=== PATIENT | male | born 1945 | race Caucasian/White ===

== ENCOUNTER 2017-05-19 11:29 | Emergency (ER) | payer OTHER, MEDICARE ==
--- NOTE | 2017-05-19 12:00 | ER Document Report ---
ED General - General Chief Complaint: Abdominal Pain Stated Complaint: ABDOMINAL PAIN Time Seen by Provider: 05/19/17 11:59 Mode of Arrival: Ambulatory Information source: Patient TRAVEL OUTSIDE OF THE [place] 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 No back pain, nausea, vomiting, diarrhea, fevers, or loss of appetite. No aggravating or alleviating factors. I have greeted and performed a rapid initial assessment of this patient. A comprehensive ED assessment and evaluation of the patient, analysis of test results and completion of the medical decision making process will be conducted by additional ED providers. PHYSICAL EXAMINATION: GENERAL: Well-appearing, well-nourished and in no acute distress. HEAD: Atraumatic, normocephalic. EYES: Pupils equal round extraocular movements intact, conjunctiva are normal. ENT: Nares patent NECK: Normal range of motion LUNGS: No respiratory distress ABD: Patient has mild tenderness with right upper quadrant palpation. No rebound rigidity or guarding. Positive bowel sounds. Musculoskeletal: Normal range of motion NEUROLOGICAL: Normal speech, normal gait. PSYCH: Normal mood, normal affect. SKIN: Warm, Dry, normal turgor, no rashes or lesions noted. - Related Data Allergies/Adverse Reactions: No Known Allergies Allergy (Verified 05/19/17 11:30) Past Medical History - Social History Smoking Status: Current Every Day Smoker Chew tobacco use (# tins/day): No Frequency of alcohol use: None Drug Abuse: None Family History: Reviewed & Not Pertinent Patient has suicidal ideation: No Patient has homicidal ideation: No - Past Medical History Cardiac Medical History: Reports: Hx Coronary Artery Disease, Hx Hypercholesterolemia, Hx Hypertension Denies: Hx Heart Attack Pulmonary Medical History: Reports: Hx COPD Denies: Hx Asthma Neurological Medical History: Denies: Hx Cerebrovascular Accident, Hx Seizures Endocrine Medical History: Reports: Hx Diabetes Mellitus Type 1, Hx Diabetes Mellitus Type 2 Renal/ Medical History: Denies: Hx Peritoneal Dialysis GI Medical History: Denies: Hx Hepatitis, Hx Hiatal Hernia, Hx Ulcer Musculoskeltal Medical History: Reports Hx Arthritis Psychiatric Medical History: Reports: Hx Depression Infectious Medical History: Denies: Hx Hepatitis Past Surgical History: Reports: Hx Cardiac Surgery - TRIPLE BYPASS, STENTS, Hx Nose Surgery, Hx Open Heart Surgery - bypass, Hx Orthopedic Surgery - bilat TKA , Hx Tonsillectomy. Denies: Hx Pacemaker - Immunizations Hx Diphtheria, Pertussis, Tetanus Vaccination: Yes Physical Exam - Vital signs Vitals: Temp Pulse Resp BP Pulse Ox 97.4 F 69 16 125/68 97 05/19/17 11:35 05/19/17 11:35 05/19/17 11:35 05/19/17 11:35 05/19/17 11:35 Course - Vital Signs Vital signs: Temp Pulse Resp BP Pulse Ox 97.4 F 69 16 125/68 97 05/19/17 11:35 05/19/17 11:35 05/19/17 11:35 05/19/17 11:35 05/19/17 11:35
--- NOTE | 2017-05-19 12:15 | ER Document Report ---
ED GI/ - General Chief Complaint: Abdominal Pain Stated Complaint: ABDOMINAL PAIN Time Seen by Provider: 05/19/17 11:59 Mode of Arrival: Ambulatory Information source: Patient Notes: 71-year-old male who presents today with 2 days of some right upper quadrant and right lower quadrant abdominal pain. He states it is intermittent. He denies any aggravating or relieving factors. He denies any association necessarily with food. He does state some radiation across the left upper abdomen. He denies any nausea, vomiting, fevers, chest pain, shortness of breath. Patient denies a history of pain to this location previously. Patient states he does not drink excessive alcohol and he does not have an appendix. TRAVEL OUTSIDE OF THE [place] IN LAST 30 DAYS: No - HPI Patient complains to provider of: Other - See above Onset: Other - See above Timing/Duration: Gradual Quality of pain: Achy, Other - See above Severity at maximum: Moderate Severity in ED: Mild Pain Level: 1 Location: Other - See above Sexual history: Inactive Associated symptoms: Other - See above Exacerbated by: Denies Relieved by: Denies Similar symptoms previously: No Recently seen / treated by doctor: No - Related Data Allergies/Adverse Reactions: No Known Allergies Allergy (Verified 05/19/17 11:30) Past Medical History - General Information source: Patient - Social History Smoking Status: Current Every Day Smoker Cigarette use (# per day): No Chew tobacco use (# tins/day): No Smoking Education Provided: No Frequency of alcohol use: None Drug Abuse: None Family History: Reviewed & Not Pertinent Patient has suicidal ideation: No Patient has homicidal ideation: No - Past Medical History Cardiac Medical History: Reports: Hx Coronary Artery Disease, Hx Hypercholesterolemia, Hx Hypertension Denies: Hx Heart Attack Pulmonary Medical History: Reports: Hx COPD Denies: Hx Asthma Neurological Medical History: Denies: Hx Cerebrovascular Accident, Hx Seizures Endocrine Medical History: Reports: Hx Diabetes Mellitus Type 1, Hx Diabetes Mellitus Type 2 Renal/ Medical History: Denies: Hx Peritoneal Dialysis GI Medical History: Denies: Hx Hepatitis, Hx Hiatal Hernia, Hx Ulcer Musculoskeltal Medical History: Reports Hx Arthritis Psychiatric Medical History: Reports: Hx Depression Infectious Medical History: Denies: Hx Hepatitis Past Surgical History: Reports: Hx Cardiac Surgery - TRIPLE BYPASS, STENTS, Hx Nose Surgery, Hx Open Heart Surgery - bypass, Hx Orthopedic Surgery - bilat TKA , Hx Tonsillectomy. Denies: Hx Pacemaker - Immunizations Hx Diphtheria, Pertussis, Tetanus Vaccination: Yes Review of Systems - Review of Systems Constitutional: denies: Fever EENT: denies: Eye discharge, Nose discharge Cardiovascular: denies: Chest pain, Palpitations Respiratory: denies: Short of breath Gastrointestinal: denies: Abdomen distended, Diarrhea, Nausea, Vomiting Genitourinary: denies: Dysuria Musculoskeletal: denies: Leg swelling Skin: Other - no hives. denies: Rash Neurological/Psychological: Other - no slurred speech -: Yes All other systems reviewed and negative Physical Exam - Vital signs Vitals: Temp Pulse Resp BP Pulse Ox 97.4 F 69 16 125/68 97 05/19/17 11:35 05/19/17 11:35 05/19/17 11:35 05/19/17 11:35 05/19/17 11:35 Notes: Reviewed vital signs and nursing note as charted by RN. CONSTITUTIONAL: Alert and oriented and responds appropriately to questions. Well -appearing; well-nourished HEAD: Normocephalic; atraumatic EYES: Sclerae non-icteric CARD: Regular rate and rhythm; no murmurs RESP: Normal chest excursion without splinting or tachypnea; breath sounds clear and equal bilaterally ABD/GI: Normal bowel sounds; non-distended; soft, mild tenderness to the right upper and right lower quadrants. Right lower quadrant greater than right upper quadrant. No rebound or guarding. No palpable masses or bruits upon auscultation BACK: The back appears normal and is non-tender to palpation, there is no CVA tenderness EXT: Normal ROM in all joints; non-tender to palpation; no edema SKIN: No acute lesions noted NEURO: Moves all extremities equally; Motor and sensory function intact PSYCH: The patient's mood and manner are appropriate. Grooming and personal hygiene are appropriate. Course - Re-evaluation Re-evalutation: 05/19/17 12:18 Given the history, physical, patient's age, cardiac history, we will obtain basic labs, abdominal labs, including an EKG and a lactic acid as well as a CT scan of the abdomen and pelvis. EKG shows a heart of 65, normal sinus rhythm, normal axis, no obvious ST elevation. Inverted T waves in leads II, 3, aVF, V4 through V6. Possibly minimal depression in leads V4 and V5. Previous EKG in July 2011 does show inverted T waves in leads V4 through V6 with some minimal depressions in leads V4 and V5. Patient denies any chest pain. I have added a troponin I. 05/19/17 14:22 Labs thus far as recorded. 05/19/17 15:10 Labs as recorded. Vital signs are stable. No change in exam. CT pending. 05/19/17 17:01 CT of the abdomen and pelvis as recorded. Lactic acid is recorded. No signs of cholecystitis. Normal white blood cell count. Repeat troponin as recorded. Patient still denies any chest pain. On repeat examination the patient has no tenderness currently to the right upper quadrant upon deep palpation. Patient does not have an appendix. Given the above history and physical examination, repeat troponin, CT scan of the abdomen and pelvis, urinalysis, patient will be discharged home with strict return precautions and follow-up with his primary care physician. I have instructed the patient to start taking Prilosec once a day and I have provided extremely strict return precautions. Patient understands these instructions. - Vital Signs Vital signs: Temp Pulse Resp BP Pulse Ox 97.4 F 69 16 125/68 97 05/19/17 11:35 05/19/17 11:35 05/19/17 11:35 05/19/17 11:35 05/19/17 11:35 - Laboratory Result Diagrams: 05/19/17 12:36 05/19/17 12:36 Laboratory results interpreted by me: 05/19/17 05/19/17 12:36 12:36 Potassium 5.1 H BUN 25 H Creatinine 2.00 H Est GFR ( Amer) 40 L Est GFR (Non-Af Amer) 33 L Glucose 190 H Urine Glucose (UA) 150 H Discharge - Discharge Clinical Impression: Abdominal discomfort Condition: Good Disposition: HOME, SELF-CARE Additional Instructions: Come back immediately for any increased pain, change in the quality or location of pain, fevers, vomiting, diarrhea, blood in the diarrhea, blood in the stool, or any other acute problems. Please start taking Prilosec [id number] antacid medications and please follow-up with your primary care physician as we have discussed. Referrals: FARAZ TIRADO MD [Primary Care Provider] - Follow up as needed
[2017-05-19 12:54] LABS: ABSOLUTE BASOPHILS # (AUTO) 0.1 10^3/uL (0.0-0.2); ABSOLUTE EOSINOPHILS # (AUTO) 0.3 10^3/uL (0.0-0.6); ABSOLUTE LYMPHOCYTES (AUTO) 3.1 10^3/uL (0.5-4.7); ABSOLUTE MONOCYTES (AUTO) 0.6 10^3/uL (0.1-1.4); ABSOLUTE NEUT (AUTO) 3.8 10^3/uL (1.7-8.2); BASOPHILS % (AUTO) 1.1 % (0-2); EOSINOPHILS % (AUTO) 3.8 % (0-6); HEMATOCRIT 46.6 % (37.9-51.0); HEMOGLOBIN 15.5 g/dL (13.5-17.0); LYMPHOCYTES % (AUTO) 39.3 % (13-45); MEAN CORPUSCULAR HEMOGLOBIN 32.5 pg (27.0-33.4); MEAN CORPUSCULAR HGB CONC 33.4 g/dL (32.0-36.0); MEAN CORPUSCULAR VOLUME 97 fl (80-97); MONOCYTES % (AUTO) 7.4 % (3-13); PLATELET COUNT 204 10^3/uL (150-450); RED BLOOD COUNT 4.78 10^6/uL (4.35-5.55); RED CELL DISTRIBUTION WIDTH 13.5 % (11.5-14.0); SEGMENTED NEUTROPHILS % (AUTO) 48.4 % (42-78); TOTAL CELLS COUNTED % (AUTO) 100 %; WHITE BLOOD COUNT 7.9 10^3/uL (4.0-10.5)
[2017-05-19 12:57] LABS: APPEARANCE,URINE CLEAR; BILIRUBIN,URINE NEGATIVE (NEGATIVE); COLOR,URINE YELLOW; GLUCOSE, URINE 150 mg/dL (NEGATIVE); KETONES,URINE NEGATIVE (NEGATIVE); LEUKOCYTE ESTERASE,URINE NEGATIVE (NEGATIVE); NITRITE,URINE NEGATIVE (NEGATIVE); PROTEIN,URINE NEGATIVE (NEGATIVE); URINE SPECIFIC GRAVITY 1.006; UROBILINOGEN,URINE NEGATIVE mg/dL (<2.0)
[2017-05-19 13:17] LABS: ALANINE AMINOTRANSFERASE 24 U/L (21-72); ALBUMIN 4.2 g/dL (3.5-5.0); ALKALINE PHOSPHATASE 44 U/L (38-126); ANION GAP 8 (5-19); ASPARTATE AMINO TRANSFERASE 28 U/L (17-59); BILIRUBIN,DIRECT 0.3 mg/dL (0.0-0.4); BILIRUBIN,TOTAL 0.9 mg/dL (0.2-1.3); BLOOD UREA NITROGEN 25 mg/dL (7-20); CALCIUM 9.9 mg/dL (8.4-10.2); CARBON DIOXIDE 29 mmol/L (22-30); CHLORIDE 104 mmol/L (98-107); GLUCOSE 190 mg/dL (75-110); LIPASE 93.9 U/L (23-300); POTASSIUM 5.1 mmol/L (3.6-5.0); SODIUM 141.1 mmol/L (137-145); TOTAL PROTEIN 6.7 g/dL (6.3-8.2)
--- NOTE | 2017-05-19 16:15 | RADIOLOGY REPORT (SQ) ---
EXAM DESCRIPTION: CT ABD/PELVIS ORAL ONLY COMPLETED DATE/TIME: 05/19/2017 3:53 pm REASON FOR STUDY: 13, RUQ and RLQ pain; no appendix COMPARISON: Renal ultrasound 04/26/2007, 12/29/2014 CT abdomen pelvis 04/14/2007 TECHNIQUE: CT scan of the abdomen and pelvis performed without intravenous contrast. Patient drank oral contrast. Images reviewed with lung, soft tissue, and bone windows. Reconstructed coronal and sagittal MPR imag es reviewed. All images stored on PACS. All CT scanners at this facility use dose modulation, iterative reconstruction, and/or weight based d osing when appropriate to reduce radiation dose to as low as reasonably achievable (ALARA). [facility]: Dose Right [facility]: CareDose [facility]: Dose Right [facility]: Teradose 4D [facility]: [employer] RADIATION DOSE: CT Rad equipment meets quality standard of care and radiation dose reduction techniq ues were employed. CTDIvol: 8.0 mGy. DLP: 453 mGy-cm.mGy. LIMITATIONS: None. FINDINGS: LOWER CHEST: Lung bases are clear. Tiny hiatal hernia. Coronary artery calcification. O ld surgical jose right lateral lung base. NON-CONTRASTED LIVER, SPLEEN, ADRENALS: Evaluation limited by lack of IV contrast. No identified sign ificant masses. PANCREAS: No masses. No peripancreatic inflammatory changes. GALLBLADDER: No identified stones by CT criteria. No inflammatory changes to suggest cholecystitis. RIGHT KIDNEY AND URETER: Right kidney 10.5 cm in length. No suspicious masses. Assessment limited b y lack of IV contrast. 1 cm cyst right lower pole kidney. No significant calcifications. No hydro nephrosis or hydroureter. LEFT KIDNEY AND URETER: Left kidney 7.5 cm in length. No suspicious masses. Assessment limited by l ack of IV contrast. 2 cm left upper pole cyst, 1.6 cm left midpole cyst, 1 cm left lower pole cyst. No significant calcifications. No hydronephrosis or hydroureter. AORTA AND RETROPERITONEUM: Abdominal aorta 3.2 cm in greatest AP diameter. Inferior vena cava unrema rkable. No retroperitoneal masses or adenopathy. BOWEL AND PERITONEAL CAVITY: No obvious masses or inflammatory changes. No free fluid. Patient drank oral contrast. No CT evidence of bowel obstruction. APPENDIX: Surgically absent. PELVIS, BLADDER, AND ABDOMINAL WALL:Tiny umbilical hernia containing nonobstructed small bowel bryant claudio image 51, axial image 53. No abnormal masses. No free fluid. Bladder normal. BONES: Degenerative disc changes lower lumbar spine OTHER: No other significant finding. IMPRESSION: NO SIGNIFICANT OR ACUTE PROCESS IN THE ABDOMEN OR PELVIS. COMMENT: Quality ID # [id number]: Final reports with documentation of one or more dose reduction techniques (e.g., Automated exposure control, adjustment of the mA and/or kV according to patient size, use of iterative reconstruction technique) TECHNICAL DOCUMENTATION: JOB ID: [id number] [employer]- All Rights Reserved
--- NOTE | 2017-05-19 17:34 | EKG REPORT ---
SEVERITY:- ABNORMAL ECG - SINUS RHYTHM REPOL ABNRM SUGGESTS ISCHEMIA, ANT-LAT LEADS : Confirmed by: Stan Torres MD 19-May-2017 17:33:28
[2017-05-19 17:36] VITALS: BP 124/68
== END 2017-05-19 17:41 | disposition home or self-care (01) ==
LOC: ER 11:29
DX: R10.11 Right upper quadrant pain (principal); R10.31 Right lower quadrant pain; F17.200 Nicotine dependence, unspecified, uncomplicated; I25.10 Atherosclerotic heart disease of native coronary artery without angina pectoris; E78.00 Pure hypercholesterolemia, unspecified; I10 Essential (primary) hypertension; J44.9 Chronic obstructive pulmonary disease, unspecified; E11.9 Type 2 diabetes mellitus without complications; Z95.1 Presence of aortocoronary bypass graft
CPT/HCPCS: 36415; 74176; 80053; 81001; 83605; 83690; 84484; 85025; 93005; 93010; 99284

== ENCOUNTER 2017-11-06 06:06 | Day surgery (SDC) | payer MEDICARE, OTHER ==
--- NOTE | 2017-10-30 13:29 | RADIOLOGY REPORT (SQ) ---
EXAM DESCRIPTION: CHEST 2 VIEWS COMPLETED DATE/TIME: 10/30/2017 1:17 pm REASON FOR STUDY: PRE OP; SOB COMPARISON: July 2015 EXAM PARAMETERS: NUMBER OF VIEWS: two views TECHNIQUE: Digital Frontal and Lateral radiographic views of the chest acquired. RADIATION DOSE: NA LIMITATIONS: none FINDINGS: LUNGS AND PLEURA: No opacities, masses or pneumothorax. No pleural effusion. MEDIASTINUM AND HILAR STRUCTURES: No masses or contour abnormalities. HEART AND VASCULAR STRUCTURES: Heart normal size. No evidence for failure. BONES: No acute findings. HARDWARE: Patient is status post median sternotomy OTHER: No other significant finding. IMPRESSION: NO ACUTE RADIOGRAPHIC FINDING IN THE CHEST. TECHNICAL DOCUMENTATION: JOB ID: [id number] [employer]- All Rights Reserved Reading location - IP/workstation name: [email or web address]
[2017-10-30 13:48] LABS: HEMATOCRIT 48.1 % (37.9-51.0); HEMOGLOBIN 16.6 g/dL (13.5-17.0); MEAN CORPUSCULAR HEMOGLOBIN 32.5 pg (27.0-33.4); MEAN CORPUSCULAR HGB CONC 34.5 g/dL (32.0-36.0); MEAN CORPUSCULAR VOLUME 94 fl (80-97); PLATELET COUNT 170 10^3/uL (150-450)
[2017-10-30 14:08] LABS: ANION GAP 14 (5-19); BLOOD UREA NITROGEN 33 mg/dL (7-20); CALCIUM 9.9 mg/dL (8.4-10.2); CARBON DIOXIDE 25 mmol/L (22-30); CHLORIDE 98 mmol/L (98-107); GLUCOSE 396 mg/dL (75-110); POTASSIUM 5.4 mmol/L (3.6-5.0); SODIUM 137.2 mmol/L (137-145)
--- NOTE | 2017-10-30 22:14 | EKG REPORT ---
SEVERITY:- ABNORMAL ECG - SINUS RHYTHM REPOL ABNRM, PROBABLE ISCHEMIA, ANT-LAT LEADS : Confirmed by: Becky Cabrera 30-Oct-2017 22:13:32
[~2017-11-06 06:06] MED LIST: ACETAMINOPHEN 325 MG TABLET PO PRN; LACTATED RINGERS 1000 ML IV PRN; LIDOCAINE 0.5% INJ-PF (5 MG/ML) 50 ML SDV SUBCUT PRN
[2017-11-06] MEDS ORDERED: ONDANSETRON HCL INJ/PF 4 MG/2 ML SDV ONE (06:35)
[2017-11-06] MEDS ORDERED: PROPOFOL INJ 200 MG/20 ML VIAL IV ONE (06:35)
[2017-11-06] MEDS ORDERED: MIDAZOLAM 2 MG/2 ML INJ ONE (06:35)
[2017-11-06] MEDS ORDERED: FENTANYL CITRATE INJ/PF 100 MCG/2 ML AMPUL ONE (06:35)
[2017-11-06] MEDS ORDERED: LIDOCAINE 2% INJ-PF (20 MG/ML) 10 ML AMPUL ONE (06:35)
[2017-11-06] MEDS ORDERED: ALBUTEROL SULFATE 0.083% NEB 2.5 MG/3 ML AMPUL NEB ONE ×2 (06:51→07:00)
[2017-11-06 07:36] LABS: INTERNATIONAL RATION (INR) 0.95; PARTIAL THROMBOPLASTIN TIME 26.4 SEC (23.5-35.8); PROTHROMBIN TIME 13.1 SEC (11.4-15.4)
[2017-11-06 07:42] LABS: POTASSIUM 4.5 mmol/L (3.6-5.0)
[2017-11-06] MEDS ORDERED: INSULIN REG, HUMAN 100 UNIT/ML 3 ML VIAL (PYX) ONE (08:13)
[2017-11-06 10:12] LABS: POTASSIUM 4.8 mmol/L (3.6-5.0)
[2017-11-06] MEDS ORDERED: ONDANSETRON HCL INJ/PF 4 MG/2 ML SDV IV PRN (10:21)
[2017-11-06] MEDS ORDERED: DIPHENHYDRAMINE HCL 50 MG/ML VIAL IV PRN (10:21)
[2017-11-06] MEDS ORDERED: PROMETHAZINE HCL INJ 25 MG/1 ML VIAL IV PRN ×2 (10:21)
[2017-11-06] MEDS ORDERED: MEPERIDINE HCL/PF INJ 25 MG/1 ML DISP.SYRIN IV PRN (10:21)
[2017-11-06] MEDS ORDERED: FENTANYL CITRATE INJ/PF 100 MCG/2 ML AMPUL IV PRN ×3 (10:21)
[2017-11-06] MEDS ORDERED: NALOXONE HCL INJ/PF 0.4 MG/1 ML SDV ONE (11:26)
--- NOTE | 2017-11-06 11:33 | Discharge Summary ---
Discharge Summary (SDC) - Discharge Final Diagnosis: Inadequate bowel prep. No evidence of large masses, strictures, or concentric tumors. Date of Surgery: 11/06/17 Discharge Date: 11/06/17 Condition: Stable Referrals: FARAZ TIRADO MD [Primary Care Provider] - Discharge Diet: As Tolerated Respiratory Treatments at Home: Deep Breathing/Coughing, Incentive Spirometer Discharge Activity: Activity As Tolerated Home Care Assistance: None Needed Report the Following to Your Physician Immediately: Shortness of Breath, Nausea , Vomiting, Increase in Pain, Fever over 101 Degrees, Unusual Bleeding
--- NOTE | 2017-11-06 11:52 | Operative Report ---
Nonrecallable Operative Report DATE OF SURGERY: 11/06/17 PREOPERATIVE DIAGNOSIS: Weight loss POSTOPERATIVE DIAGNOSIS: 1. Inadequate bowel prep. 2. No evidence of strictures, concentric lesions/cancers, large tumors OPERATION: Colonoscopy to the cecum SURGEON: JEREMIE HAYNES ANESTHESIA: LMAC TISSUE REMOVED OR ALTERED: None COMPLICATIONS: Adequate bowel prep ESTIMATED BLOOD LOSS: None PROCEDURE: Drains/implants: None. Procedure in detail: After informed consent was obtained, the patient was laid in the left lateral decubitus position in the operating room. The colonoscope was inserted into the rectum. It was then passed up the rectum, moist colon, and colon, across the transverse colon, down the ascending colon, and into the cecum. The prep was inadequate. There was retained solid and liquid stool throughout the colon. Multiple washings and suctionings were undertaken, however a large portion of the colonic mucosa was not adequately surveyed. Approximately 70% of the colonic mucosa was adequately evaluated on this study. The ileocecal valve and appendiceal orifice were identified in the cecum. The scope was then withdrawn circumferentially noting the mucosa. The scope was pulled past the ascending colon, transverse colon, descending colon, sigmoid colon, and into the rectum. No large masses, tumors, or strictures could be identified in the colon. There is the possibility that small polyps were missed due to the large amount of retained stool. In the rectum, a retroflexion maneuver was performed. No significant internal hemorrhoids were identified. The scope was straightened, air was suctioned from the rectum, the scope was removed, and the procedure was concluded. All sponge, instrument, and needle counts were correct 2. Condition: Stable. Recommendation: Repeat colonoscopy in one year to evaluate for small polyps.
[2017-11-06 12:59] VITALS: BP 112/77
[2017-11-06] MEDS ORDERED: RINGERS LACTATED IV ONE (13:00)
== END 2017-11-06 12:45 | disposition home or self-care (01) ==
LOC: OROUT 06:06
PROVIDERS: ATTEND Surgery
DX: Z86.010 Personal history of colon polyps (principal); R63.4 Abnormal weight loss; E11.9 Type 2 diabetes mellitus without complications; I25.10 Atherosclerotic heart disease of native coronary artery without angina pectoris; J44.9 Chronic obstructive pulmonary disease, unspecified; F17.210 Nicotine dependence, cigarettes, uncomplicated; G47.33 Obstructive sleep apnea (adult) (pediatric); I11.0 Hypertensive heart disease with heart failure; I50.9 Heart failure, unspecified; D64.9 Anemia, unspecified; Z79.4 Long term (current) use of insulin; Z79.82 Long term (current) use of aspirin; Z79.01 Long term (current) use of anticoagulants; Z79.899 Other long term (current) drug therapy
CPT/HCPCS: 93005; 36415 ×2; 82962; 82947; 84132; 85027; 85610; 85730; 80048; 71046; 93010; 94640; G0121; J2250; J3010; J2310; A9270 ×2; J2405; J2704; J3490; 812; J1815

== ENCOUNTER 2017-11-27 10:16 | Emergency (ER) | payer MEDICARE | END 2017-11-27 13:01 | disposition left against medical advice (07) | LOC: ER 10:16 | DX: Z53.21 Procedure and treatment not carried out due to patient leaving prior to being seen by health care provider (principal) ==

== ENCOUNTER 2017-12-20 12:52 | Emergency (ER) | payer MEDICARE, OTHER ==
[2017-12-20] MEDS ORDERED: NORMAL SALINE 1000 ML 1,000 ML IV ONE (14:31)
--- NOTE | 2017-12-20 14:32 | ER Document Report ---
ED Medical Screen (RME) - General Chief Complaint: High Blood Sugar Stated Complaint: ELEVATED BLOOD SUGAR Time Seen by Provider: 12/20/17 14:30 Notes: Patient sent by his primary care provider because his blood sugar is very high. He is an insulin-dependent diabetic. Has been running uncontrollably high blood sugars over the past week or more. Patient says he is feeling tired and may be weak, but denies any other symptoms. TRAVEL OUTSIDE OF THE [place] IN LAST 30 DAYS: No - Related Data Allergies/Adverse Reactions: No Known Allergies Allergy (Verified 10/30/17 11:32) Past Medical History - Past Medical History Cardiac Medical History: Reports: Hx Coronary Artery Disease, Hx Hypercholesterolemia, Hx Hypertension Denies: Hx Heart Attack Pulmonary Medical History: Reports: Hx COPD Denies: Hx Asthma, Hx Bronchitis, Hx Pneumonia Neurological Medical History: Denies: Hx Cerebrovascular Accident, Hx Seizures Endocrine Medical History: Reports: Hx Diabetes Mellitus Type 1, Hx Diabetes Mellitus Type 2 Renal/ Medical History: Denies: Hx Peritoneal Dialysis GI Medical History: Denies: Hx Hepatitis, Hx Hiatal Hernia, Hx Ulcer Musculoskeltal Medical History: Reports Hx Arthritis - knees Psychiatric Medical History: Reports: Hx Depression Infectious Medical History: Denies: Hx Hepatitis Past Surgical History: Reports: Hx Cardiac Surgery - TRIPLE BYPASS, STENTS, Hx Nose Surgery, Hx Open Heart Surgery - bypass, Hx Orthopedic Surgery - bilat TKA , Hx Tonsillectomy. Denies: Hx Pacemaker - Immunizations Hx Diphtheria, Pertussis, Tetanus Vaccination: Yes History of Influenza Vaccine for 01/2017 - 06/2017 Season: No Physical Exam - Vital signs Vitals: Temp Pulse Resp BP Pulse Ox 97.3 F 60 16 121/60 95 12/20/17 13:30 12/20/17 13:30 12/20/17 13:30 12/20/17 13:30 12/20/17 13:30 Course - Vital Signs Vital signs: Temp Pulse Resp BP Pulse Ox 97.3 F 60 16 121/60 95 12/20/17 13:30 12/20/17 13:30 12/20/17 13:30 12/20/17 13:30 12/20/17 13:30 Doctor's Discharge - Discharge Referrals: FARAZ TIRADO MD [Primary Care Provider] - Follow up as needed
[2017-12-20 15:27] LABS: APPEARANCE,URINE CLEAR; BILIRUBIN,URINE NEGATIVE (NEGATIVE); COLOR,URINE YELLOW; GLUCOSE, URINE >=500 mg/dL (NEGATIVE); KETONES,URINE NEGATIVE (NEGATIVE); LEUKOCYTE ESTERASE,URINE NEGATIVE (NEGATIVE); NITRITE,URINE NEGATIVE (NEGATIVE); PROTEIN,URINE NEGATIVE (NEGATIVE); URINE SPECIFIC GRAVITY 1.023; UROBILINOGEN,URINE NEGATIVE mg/dL (<2.0)
[2017-12-20 15:30] LABS: ABSOLUTE BASOPHILS # (AUTO) 0.1 10^3/uL (0.0-0.2); ABSOLUTE EOSINOPHILS # (AUTO) 0.2 10^3/uL (0.0-0.6); ABSOLUTE MONOCYTES (AUTO) 0.5 10^3/uL (0.1-1.4); ABSOLUTE NEUT (AUTO) 5.6 10^3/uL (1.7-8.2); BASOPHILS % (AUTO) 1.3 % (0-2); EOSINOPHILS % (AUTO) 2.2 % (0-6); HEMATOCRIT 48.1 % (37.9-51.0); HEMOGLOBIN 16.3 g/dL (13.5-17.0); MEAN CORPUSCULAR HEMOGLOBIN 32.4 pg (27.0-33.4); MEAN CORPUSCULAR HGB CONC 33.8 g/dL (32.0-36.0); MEAN CORPUSCULAR VOLUME 96 fl (80-97); MONOCYTES % (AUTO) 5.5 % (3-13); PLATELET COUNT 213 10^3/uL (150-450); RED BLOOD COUNT 5.02 10^6/uL (4.35-5.55); RED CELL DISTRIBUTION WIDTH 13.2 % (11.5-14.0); TOTAL CELLS COUNTED % (AUTO) 100 %; WHITE BLOOD COUNT 9.4 10^3/uL (4.0-10.5)
[2017-12-20 15:40] LABS: ALANINE AMINOTRANSFERASE 24 U/L (21-72); ALBUMIN 4.5 g/dL (3.5-5.0); ALKALINE PHOSPHATASE 71 U/L (38-126); ANION GAP 16 (5-19); ASPARTATE AMINO TRANSFERASE 21 U/L (17-59); BILIRUBIN,DIRECT 0.4 mg/dL (0.0-0.4); BILIRUBIN,TOTAL 1.2 mg/dL (0.2-1.3); BLOOD UREA NITROGEN 29 mg/dL (7-20); CALCIUM 9.9 mg/dL (8.4-10.2); CARBON DIOXIDE 27 mmol/L (22-30); CHLORIDE 90 mmol/L (98-107); LIPASE 961.1 U/L (23-300); POTASSIUM 4.7 mmol/L (3.6-5.0); TOTAL PROTEIN 7.5 g/dL (6.3-8.2)
[2017-12-20 15:53] LABS: GLUCOSE 609 mg/dL (75-110)
[2017-12-20] MEDS ORDERED: INSULIN REG, HUMAN 100 UNIT/ML 3 ML VIAL (PYX) IV ONE (16:56)
--- NOTE | 2017-12-20 16:59 | ER Document Report ---
ED Blood Sugar Problem <JOSUE SOLORIO - Last Filed: 12/20/17 21:02> - General Mode of Arrival: Ambulatory Information source: Patient TRAVEL OUTSIDE OF THE [place] IN LAST 30 DAYS: No - HPI Onset: This morning Onset/Duration: Gradual Quality of pain: No pain Pain Level: Denies Associated symptoms: Increased thirst. denies: Vomiting Similar symptoms previously: No Recently seen / treated by doctor: Yes <YAZ JERONIMO - Last Filed: 12/21/17 11:03> - General Chief Complaint: High Blood Sugar Stated Complaint: ELEVATED BLOOD SUGAR Time Seen by Provider: 12/20/17 14:30 Notes: Patient presents complaining of elevated blood sugar. Patient saw his primary doctor today for a routine follow-up and was told his blood sugar was elevated. Patient states that he has had increased thirst. Patient states he has an occasional cough but attributes this to smoking. Patient denies any fever or recent illness. Patient denies any nausea vomiting or urinary symptoms. Patient states that today his primary doctor increased his Lantus from 50 units to 65 units in the evening and adjust the NovoLog to 12 units at noon and 8 units in the evening. (YAZ JERONIMO) - Related Data Allergies/Adverse Reactions: No Known Allergies Allergy (Verified 12/20/17 20:42) Past Medical History - General Information source: Patient - Social History Smoking Status: Current Every Day Smoker Chew tobacco use (# tins/day): No Frequency of alcohol use: None Drug Abuse: None Lives with: Spouse/Significant other Family History: Reviewed & Not Pertinent Patient has suicidal ideation: No Patient has homicidal ideation: No - Past Medical History Cardiac Medical History: Reports: Hx Coronary Artery Disease, Hx Hypercholesterolemia, Hx Hypertension Denies: Hx Heart Attack Pulmonary Medical History: Reports: Hx COPD Denies: Hx Asthma, Hx Bronchitis, Hx Pneumonia Neurological Medical History: Denies: Hx Cerebrovascular Accident, Hx Seizures Endocrine Medical History: Reports: Hx Diabetes Mellitus Type 1, Hx Diabetes Mellitus Type 2 Renal/ Medical History: Denies: Hx Peritoneal Dialysis GI Medical History: Denies: Hx Hepatitis, Hx Hiatal Hernia, Hx Ulcer Musculoskeletal Medical History: Reports Hx Arthritis - knees Psychiatric Medical History: Reports: Hx Depression Infectious Medical History: Denies: Hx Hepatitis Past Surgical History: Reports: Hx Cardiac Surgery - TRIPLE BYPASS, STENTS, Hx Nose Surgery, Hx Open Heart Surgery - bypass, Hx Orthopedic Surgery - bilat TKA , Hx Tonsillectomy. Denies: Hx Pacemaker - Immunizations Hx Diphtheria, Pertussis, Tetanus Vaccination: Yes <YAZ JERONIMO - Last Filed: 12/21/17 11:03> Review of Systems - Review of Systems Constitutional: No symptoms reported. denies: Chills, Fever, Recent illness EENT: No symptoms reported Cardiovascular: No symptoms reported. denies: Chest pain Respiratory: Cough. denies: Short of breath Gastrointestinal: No symptoms reported. denies: Abdominal pain, Diarrhea, Nausea, Vomiting Genitourinary: No symptoms reported. denies: Dysuria Male Genitourinary: No symptoms reported Musculoskeletal: No symptoms reported. denies: Back pain Skin: No symptoms reported Hematologic/Lymphatic: No symptoms reported Neurological/Psychological: No symptoms reported <YAZ JERONIMO - Last Filed: 12/21/17 11:03> Physical Exam - General General appearance: Appears well, Alert In distress: None - HEENT Head: Normocephalic, Atraumatic Eyes: Normal Conjunctiva: Normal Nasal: Normal Mouth/Lips: Normal Mucous membranes: Normal Neck: Normal, Supple. No: Lymphadenopathy - Respiratory Respiratory status: No respiratory distress Chest status: Nontender Breath sounds: Normal. No: Rales, Rhonchi, Stridor, Wheezing Chest palpation: Normal - Cardiovascular Rhythm: Regular Heart sounds: S1 appreciated, S2 appreciated Murmur: No - Abdominal Inspection: Normal Distension: No distension Bowel sounds: Normal Tenderness: Nontender Organomegaly: No organomegaly - Back Back: Normal, Nontender. No: CVA tenderness - Extremities General upper extremity: Normal inspection, Normal ROM General lower extremity: Normal inspection, Normal ROM - Neurological Neuro grossly intact: Yes Cognition: Normal Ace Coma Scale Eye Opening: Spontaneous Ace Coma Scale Verbal: Oriented [place] Coma Scale Motor: Obeys Commands [place] Coma Scale Total: 15 - Psychological Associated symptoms: Normal affect, Normal mood - Skin Skin Temperature: Warm Skin Moisture: Dry Skin Color: Normal <YAZ JERONIMO - Last Filed: 12/21/17 11:03> - Vital signs Vitals: Temp Pulse Resp BP Pulse Ox 97.3 F 60 16 121/60 95 12/20/17 13:30 12/20/17 13:30 12/20/17 13:30 12/20/17 13:30 12/20/17 13:30 Course - Laboratory Result Diagrams: 12/20/17 15:07 12/20/17 15:07 <JOSUE SOLORIO - Last Filed: 12/20/17 21:02> - Laboratory Result Diagrams: 12/20/17 15:07 12/20/17 15:07 <YAZ JERONIMO - Last Filed: 12/21/17 11:03> - Re-evaluation Re-evalutation: 12/20/17 21:02 I discussed patient's CAT scan with him, he reports he is already aware of his left kidney being smaller, the small abdominal aortic aneurysm, and arthritis in his back. No pancreatitis noted on CAT scan evaluation. Patient denies any abdominal pain, nausea, vomiting. Blood glucose downtrending. Patient was given p.o. fluids and crackers which he tolerated without any difficulty. Patient has newly organized insulin regimen by his primary care provider. Patient declining any additional evaluation or workup, declining admission to the hospital, states that he is ready to go home and he will come back if he worsens. He does agree to be seen by his provider in the next 1-2 days. He states he will return if he vomits, develops abdominal pain, fever, chest pain, dizziness, or any other concerning symptoms. He is quite well-appearing on evaluation, unremarkable vital signs, he tolerated p.o. without any difficulty. (JOSUE SOLORIO) 12/20/17 16:[address] Valdes regarding patient presentation and diagnostic evaluation discussed patient's elevated lipase test in the absence of any abdominal pain symptoms. Patient denies any alcohol use. Dr.'s Valdes recommends noncontrasted CT scan of the abdomen pelvis 12/20/17 17:[address], resting comfortably. RN states that there is no LR in the department, IV fluids changed to normal saline. 12/20/17 18:46 RN states that patient's recent Accu-Chek is 354. 12/20/17 19:19 Bedside report and handoff given to Josue BROWN (YAZ JERONIMO) - Vital Signs Vital signs: Temp Pulse Resp BP Pulse Ox 98.1 F 74 16 120/64 95 12/20/17 21:05 12/20/17 21:05 12/20/17 21:05 12/20/17 21:05 12/20/17 21:05 - Laboratory Laboratory results interpreted by me: 12/20/17 12/20/17 12/20/17 14:34 15:07 15:07 Sodium 133.0 L Chloride 90 L BUN 29 H Creatinine 1.74 H Est GFR ( Amer) 47 L Est GFR (Non-Af Amer) 39 L Glucose 609 H* POC Glucose 542 H* Lipase 961.1 H Urine Glucose (UA) >=500 H 12/20/17 18:40 Sodium Chloride BUN Creatinine Est GFR ( Amer) Est GFR (Non-Af Amer) Glucose POC Glucose 354 H Lipase Urine Glucose (UA) Discharge <JOSUE SOLOIRO - Last Filed: 12/20/17 21:02> <YAZ JERONIMO - Last Filed: 12/21/17 11:03> - Discharge Clinical Impression: Hyperglycemia Pancreatitis Qualifiers: Chronicity: acute Pancreatitis type: unspecified pancreatitis type Acute pancreatitis complication: unspecified Qualified Code(s): K85.90 - Acute pancreatitis without necrosis or infection, unspecified Condition: Stable Disposition: HOME, SELF-CARE Additional Instructions: Your blood sugar has been addressed, please follow your providers new recommended doses for insulin, please follow-up with them very closely in the office for recheck. Avoid sugary foods. Your pancreas is normal on imaging, lipase is 900, this will need to be trended. Start with clear fluid diet, progress to bland fluid, avoid fatty foods, take nausea medicine if needed, take Tylenol if needed for pain. Your CAT scan shows no new findings of left-sided kidney being small, degenerative disc disease, and small aortic aneurysm as we discussed. Please provide your primary care with the report as discussed. Return if you worsen including dizziness, vomiting, fever, abdominal pain, or any other concerning or worsening symptoms. Prescriptions: Ondansetron [Zofran Odt 4 mg Tablet] 1 - 2 tab PO Q4H PRN #15 tab.rapdis PRN Reason: For Nausea/Vomiting Referrals: FARAZ TIARDO MD [Primary Care Provider] - Follow up as needed
[2017-12-20] MEDS ORDERED: RINGERS SOLUTION,LACTATED 1,000 ML IV ONE (17:43)
[2017-12-20] MEDS ORDERED: NORMAL SALINE 1000 ML 1,000 ML IV PRN (17:49)
--- NOTE | 2017-12-20 17:56 | RADIOLOGY REPORT (SQ) ---
EXAM DESCRIPTION: CHEST 2 VIEWS COMPLETED DATE/TIME: 12/20/2017 5:40 pm REASON FOR STUDY: cough COMPARISON: 10/30/2017 EXAM PARAMETERS: NUMBER OF VIEWS: two views TECHNIQUE: Digital Frontal and Lateral radiographic views of the chest acquired. RADIATION DOSE: NA LIMITATIONS: none FINDINGS: LUNGS AND PLEURA: Postsurgical changes right lower lobe. No evidence of pulmonary edema o r pneumonia. MEDIASTINUM AND HILAR STRUCTURES: No masses or contour abnormalities. HEART AND VASCULAR STRUCTURES: Heart normal size. No evidence for failure. BONES: No acute findings. HARDWARE: CABG. OTHER: No other significant finding. IMPRESSION: NO ACUTE RADIOGRAPHIC FINDING IN THE CHEST. TECHNICAL DOCUMENTATION: JOB ID: [id number] [employer]- All Rights Reserved Reading location - IP/workstation name: [email or web address]
--- NOTE | 2017-12-20 20:19 | RADIOLOGY REPORT (SQ) ---
EXAM DESCRIPTION: CT ABD/PELVIS NO ORAL OR IV COMPLETED DATE/TIME: 12/20/2017 8:06 pm REASON FOR STUDY: elevated lipase, hyperglycemia COMPARISON: None. TECHNIQUE: CT scan of the abdomen and pelvis performed without intravenous or oral contrast. Images reviewed with lung, soft tissue, and bone windows. Reconstructed coronal and sagittal MPR images revi ewed. All images stored on PACS. All CT scanners at this facility use dose modulation, iterative reconstruction, and/or weight based d osing when appropriate to reduce radiation dose to as low as reasonably achievable (ALARA). [facility]: Dose Right [facility]: CareDose [facility]: Dose Right [facility]: Teradose 4D [facility]: Kadoink RADIATION DOSE: mGy. LIMITATIONS: None. FINDINGS: LOWER CHEST: No significant findings. No nodules or infiltrates. NON-CONTRASTED LIVER, SPLEEN, ADRENALS: Evaluation limited by lack of IV contrast. No identified sign ificant masses. PANCREAS: No masses. No peripancreatic inflammatory changes. GALLBLADDER: No identified stones by CT criteria. No inflammatory changes to suggest cholecystitis. RIGHT KIDNEY AND URETER: No suspicious masses. Assessment limited by lack of IV contrast. No signif icant calcifications. No hydronephrosis or hydroureter. LEFT KIDNEY AND URETER: Relatively atrophic/ hypoplastic compared to the right. Renal cortical cysts . No significant calcifications. No hydronephrosis. AORTA AND RETROPERITONEUM: 33 mm infrarenal abdominal aortic aneurysm. BOWEL AND PERITONEAL CAVITY: No obvious masses or inflammatory changes. No free fluid. APPENDIX: Not identified. PELVIS, BLADDER, AND ABDOMINAL WALL:No abnormal masses. No free fluid. Bladder normal. BONES: L3-4 degenerative disc changes and spondylosis. OTHER: No other significant finding. IMPRESSION: 1. The left kidney is relatively atrophic or hypoplastic compared to the right. 2. Small infrarenal abdominal aortic aneurysm. 3. Degenerative disc disease. 4. No acute findings in the abdomen or pelvis. COMMENT: Quality ID # [id number]: Final reports with documentation of one or more dose reduction techniques (e.g., Automated exposure control, adjustment of the mA and/or kV according to patient size, use of iterative reconstruction technique) TECHNICAL DOCUMENTATION: JOB ID: [id number] [employer]- All Rights Reserved Reading location - IP/workstation name: [email or web address]
[2017-12-20 21:10] VITALS: BP 120/64
== END 2017-12-20 21:10 | disposition home or self-care (01) ==
LOC: ER 12:52
DX: E11.65 Type 2 diabetes mellitus with hyperglycemia (principal); Z79.4 Long term (current) use of insulin; K85.90 Acute pancreatitis without necrosis or infection, unspecified; I71.4 Abdominal aortic aneurysm, without rupture; M47.9 Spondylosis, unspecified; R05 Cough; F17.200 Nicotine dependence, unspecified, uncomplicated; I25.10 Atherosclerotic heart disease of native coronary artery without angina pectoris; I10 Essential (primary) hypertension; J44.9 Chronic obstructive pulmonary disease, unspecified; Z95.1 Presence of aortocoronary bypass graft
CPT/HCPCS: 99285; 96360; 96361; 36415; 82962; 83690; 85025; 80053; 81001; 71046; 74176; A9270; J7030; J1815

== ENCOUNTER → 2018-01-18 | Outpatient (CLI) | payer MEDICARE, OTHER ==
[2018-01-18 09:16] LABS: APPEARANCE,URINE CLEAR; BILIRUBIN,URINE NEGATIVE (NEGATIVE); COLOR,URINE YELLOW; GLUCOSE, URINE >=500 mg/dL (NEGATIVE); KETONES,URINE NEGATIVE (NEGATIVE); LEUKOCYTE ESTERASE,URINE NEGATIVE (NEGATIVE); NITRITE,URINE NEGATIVE (NEGATIVE); PROTEIN,URINE NEGATIVE (NEGATIVE); UROBILINOGEN,URINE NEGATIVE mg/dL (<2.0)
[2018-01-18 09:17] LABS: ABSOLUTE BASOPHILS # (AUTO) 0.2 10^3/uL (0.0-0.2); ABSOLUTE EOSINOPHILS # (AUTO) 0.7 10^3/uL (0.0-0.6); ABSOLUTE LYMPHOCYTES (AUTO) 3.1 10^3/uL (0.5-4.7); ABSOLUTE MONOCYTES (AUTO) 0.7 10^3/uL (0.1-1.4); ABSOLUTE NEUT (AUTO) 3.1 10^3/uL (1.7-8.2); BASOPHILS % (AUTO) 2.2 % (0-2); EOSINOPHILS % (AUTO) 8.6 % (0-6); HEMATOCRIT 42.5 % (37.9-51.0); HEMOGLOBIN 14.3 g/dL (13.5-17.0); LYMPHOCYTES % (AUTO) 39.6 % (13-45); MEAN CORPUSCULAR HEMOGLOBIN 32.5 pg (27.0-33.4); MEAN CORPUSCULAR HGB CONC 33.7 g/dL (32.0-36.0); MEAN CORPUSCULAR VOLUME 96 fl (80-97); MONOCYTES % (AUTO) 9.1 % (3-13); PLATELET COUNT 194 10^3/uL (150-450); RED BLOOD COUNT 4.41 10^6/uL (4.35-5.55); RED CELL DISTRIBUTION WIDTH 14.3 % (11.5-14.0); SEGMENTED NEUTROPHILS % (AUTO) 40.5 % (42-78); TOTAL CELLS COUNTED % (AUTO) 100 %; WHITE BLOOD COUNT 7.8 10^3/uL (4.0-10.5)
[2018-01-18 09:36] LABS: POTASSIUM 4.9 mmol/L (3.6-5.0)
--- NOTE | 2018-01-18 09:44 | RADIOLOGY REPORT (SQ) ---
EXAM DESCRIPTION: CHEST PA/LATERAL COMPLETED DATE/TIME: 01/18/2018 9:00 am REASON FOR STUDY: PRE-OP COMPARISON: 12/22/2017. EXAM PARAMETERS: NUMBER OF VIEWS: two views TECHNIQUE: Digital Frontal and Lateral radiographic views of the chest acquired. RADIATION DOSE: NA LIMITATIONS: none FINDINGS: LUNGS AND PLEURA: Postsurgical changes right lung base with chronic scarring. No acute in filtrates or effusions. MEDIASTINUM AND HILAR STRUCTURES: No masses or contour abnormalities. HEART AND VASCULAR STRUCTURES: Heart normal size. No evidence for failure. BONES: Old healed right posterior 6th rib fracture. HARDWARE: Median sternotomy wires and marker clips compatible with post CABG change. IMPRESSION: Status post CABG. Postsurgical changes right lung base. Otherwise, no acute disease. TECHNICAL DOCUMENTATION: JOB ID: [id number] [employer]- All Rights Reserved Reading location - IP/workstation name: [email or web address]
[2018-01-18 10:03] LABS: ANION GAP 6 (5-19); BLOOD UREA NITROGEN 24 mg/dL (7-20); CALCIUM 9.1 mg/dL (8.4-10.2); CARBON DIOXIDE 26 mmol/L (22-30); CHLORIDE 110 mmol/L (98-107); SODIUM 141.6 mmol/L (137-145)
--- NOTE | 2018-01-18 10:12 | EKG REPORT ---
SEVERITY:- ABNORMAL ECG - SINUS RHYTHM BORDERLINE RIGHT AXIS DEVIATION NONSPECIFIC REPOL ABNORMALITY, DIFFUSE LEADS : Confirmed by: Becky Cabrera 18-Jan-2018 10:11:55
[2018-01-18 10:31] LABS: GLUCOSE 40 mg/dL (75-110)
== END ==
LOC: OD 08:21
PROVIDERS: ATTEND Orthopaedic Surgery
DX: Z01.818 Encounter for other preprocedural examination (principal); E11.9 Type 2 diabetes mellitus without complications
CPT/HCPCS: 36415; 71046; 80048; 81001; 83036; 85025; 93005; 93010

== ENCOUNTER 2018-03-10 11:09 | Emergency (ER) | payer MEDICARE, OTHER ==
--- NOTE | 2018-03-10 11:28 | ER Document Report ---
ED General - General Stated Complaint: BLOOD SUGAR ISSUE Time Seen by Provider: 03/10/18 11:23 Information source: Patient Notes: 72-year-old male brought by EMS secondary to some confusion with low blood sugars. Patient takes 45-50 units of insulin/Lantus at night. He otherwise takes only glucose controlling tablets. Patient states he felt a little "goofy " and EMS states his blood sugar upon arrival was 42. They provided 30 g of by mouth glucose as well as 50 mL of a D10 infusion. Patient has a history of insulin-dependent diabetes as well as chronic kidney disease, CABG in 1998, high blood pressure, and a AAA. Patient last had his AAA evaluated 1 week ago. Patient denies any and all other symptomatology such as headache, blurry vision, nausea, vomiting, chest pain, abdominal pain, weakness or numbness. He states he feels back to baseline. He states this episode is very similar to the previous 2 episodes he has had when his blood sugar was low. Patient does have a glucometer at home but states he ran out of test strips. Patient denies any recent changes to his insulin or pill medications. Patient denies any recent illnesses, eating breakfast at a later time, or missing any meals or snacks. TRAVEL OUTSIDE OF THE [place] IN LAST 30 DAYS: No - HPI Onset: Other - See above Onset/Duration: Gradual Quality of pain: No pain Severity: Mild Pain Level: Denies Associated symptoms: Other Exacerbated by: Denies Relieved by: Denies Similar symptoms previously: No Recently seen / treated by doctor: No - Related Data Allergies/Adverse Reactions: No Known Allergies Allergy (Verified 12/20/17 20:42) Past Medical History - Social History Smoking Status: Unknown if Ever Smoked Family History: Reviewed & Not Pertinent - Past Medical History Cardiac Medical History: Reports: Hx Coronary Artery Disease, Hx Hypercholesterolemia, Hx Hypertension Denies: Hx Heart Attack Pulmonary Medical History: Reports: Hx COPD Denies: Hx Asthma, Hx Bronchitis, Hx Pneumonia Neurological Medical History: Denies: Hx Cerebrovascular Accident, Hx Seizures Endocrine Medical History: Reports: Hx Diabetes Mellitus Type 1, Hx Diabetes Mellitus Type 2 Renal/ Medical History: Denies: Hx Peritoneal Dialysis GI Medical History: Denies: Hx Hepatitis, Hx Hiatal Hernia, Hx Ulcer Musculoskeletal Medical History: Reports Hx Arthritis - knees Psychiatric Medical History: Reports: Hx Depression Infectious Medical History: Denies: Hx Hepatitis Past Surgical History: Reports: Hx Cardiac Surgery - TRIPLE BYPASS, STENTS, Hx Nose Surgery, Hx Open Heart Surgery - bypass, Hx Orthopedic Surgery - bilat TKA , Hx Tonsillectomy. Denies: Hx Pacemaker - Immunizations Hx Diphtheria, Pertussis, Tetanus Vaccination: Yes Review of Systems - Review of Systems Constitutional: denies: Fever EENT: denies: Eye discharge, Nose discharge Cardiovascular: denies: Chest pain, Palpitations, Dizziness, Lightheaded Respiratory: denies: Cough, Short of breath Gastrointestinal: denies: Vomiting Genitourinary: denies: Dysuria Musculoskeletal: denies: Leg swelling Skin: Other - no hives. denies: Rash Neurological/Psychological: Other - no slurred speech -: Yes All other systems reviewed and negative Physical Exam - Vital signs Vitals: Resp BP Pulse Ox 16 104/74 100 03/10/18 11:17 03/10/18 11:17 03/10/18 11:17 Notes: Reviewed vital signs and nursing note as charted by RN. CONSTITUTIONAL: Alert and oriented and responds appropriately to questions. Well -appearing; well-nourished HEAD: Normocephalic; atraumatic EYES: PERRL; Conjunctivae clear, sclerae non-icteric ENT: Normal nose; no rhinorrhea; moist mucous membranes; pharynx without lesions noted NECK: Supple without meningismus; non-tender; no cervical lymphadenopathy, no masses CARD: Regular rate and rhythm; no murmurs; symmetric distal pulses RESP: Normal chest excursion without splinting or tachypnea; breath sounds clear and equal bilaterally; no wheezes, no rhonchi, no rales ABD/GI: Normal bowel sounds; non-distended; soft, non-tender; no abdominal bruit ; no palpable organomegaly or masses BACK: The back appears normal and is non-tender to palpation EXT: Normal ROM in all joints; non-tender to palpation; no edema SKIN: No acute lesions noted NEURO: CN 2-12 intact; 5/5 bilateral upper and lower extremity strength with sensation intact to light touch PSYCH: The patient's mood and manner are appropriate. Grooming and personal hygiene are appropriate. Course - Re-evaluation Re-evalutation: 03/10/18 11:28 Given the above history and physical examination we will place the patient on a monitor and obtain an electrolyte panel, EKG, and every hour Accu-Cheks. We will feed the patient and reassess. EKG shows a heart rate of 64, normal sinus rhythm, normal axis, LVH with inverted T waves in leads I, 2, 3, aVF, V4 through V6. Old EKG from January 18, 2018 shows no obvious appreciable change. 03/10/18 12:30 Labs thus far as recorded. Patient's creatinine is around baseline. Repeat Accu-Chek as recorded. 03/10/18 14:37 Initial Accu-Chek as recorded. Initial Accu-Chek as recorded. They have not fed the patient for an unknown reason up until this point. We have provided a sandwich/lunch. 03/10/18 15:20 No appreciable change in the patient's troponin. Patient still has no confusion or focal neurological deficits. 03/10/18 15:35 I have called and spoken directly to the primary care physician Dr. Ryland Huang. He states he would have the patient hold the glipizide completely and he will see the patient tomorrow by giving him a call. Patient is in agreement with this plan. - Vital Signs Vital signs: Temp Pulse Resp BP Pulse Ox 18 127/65 H 97 03/10/18 12:01 03/10/18 12:01 03/10/18 12:01 - Laboratory Result Diagrams: 03/10/18 11:30 03/10/18 11:30 Laboratory results interpreted by me: 03/10/18 03/10/18 03/10/18 11:30 11:40 12:20 BUN 37 H Creatinine 2.09 H Est GFR ( Amer) 38 L Est GFR (Non-Af Amer) 31 L Glucose 141 H POC Glucose 150 H Urine Protein 30 H Urine Glucose (UA) 50 H 03/10/18 15:05 BUN Creatinine Est GFR ( Amer) Est GFR (Non-Af Amer) Glucose POC Glucose 128 H Urine Protein Urine Glucose (UA) Discharge - Discharge Clinical Impression: Low blood sugar in diabetes Condition: Good Disposition: HOME, SELF-CARE Additional Instructions: Comeback immediately with any return of symptomatology, any fevers or vomiting, any pain to any location, or any other acute problems. Please discontinue the glipizide and make sure that you follow-up tomorrow with your doctor as we have helped expedite for you.
[2018-03-10 11:58] LABS: ABSOLUTE BASOPHILS # (AUTO) 0.1 10^3/uL (0.0-0.2); ABSOLUTE EOSINOPHILS # (AUTO) 0.3 10^3/uL (0.0-0.6); ABSOLUTE LYMPHOCYTES (AUTO) 1.3 10^3/uL (0.5-4.7); ABSOLUTE MONOCYTES (AUTO) 0.5 10^3/uL (0.1-1.4); ABSOLUTE NEUT (AUTO) 5.9 10^3/uL (1.7-8.2); BASOPHILS % (AUTO) 1.2 % (0-2); EOSINOPHILS % (AUTO) 3.9 % (0-6); HEMATOCRIT 41.7 % (37.9-51.0); HEMOGLOBIN 14.1 g/dL (13.5-17.0); LYMPHOCYTES % (AUTO) 16.2 % (13-45); MEAN CORPUSCULAR HGB CONC 33.7 g/dL (32.0-36.0); MEAN CORPUSCULAR VOLUME 95 fl (80-97); MONOCYTES % (AUTO) 6.7 % (3-13); PLATELET COUNT 191 10^3/uL (150-450); RED BLOOD COUNT 4.39 10^6/uL (4.35-5.55); RED CELL DISTRIBUTION WIDTH 13.8 % (11.5-14.0); TOTAL CELLS COUNTED % (AUTO) 100 %; WHITE BLOOD COUNT 8.1 10^3/uL (4.0-10.5)
[2018-03-10 12:16] LABS: ANION GAP 13 (5-19); BLOOD UREA NITROGEN 37 mg/dL (7-20); CALCIUM 9.2 mg/dL (8.4-10.2); CARBON DIOXIDE 24 mmol/L (22-30); CHLORIDE 103 mmol/L (98-107); GLUCOSE 141 mg/dL (75-110); POTASSIUM 4.7 mmol/L (3.6-5.0); SODIUM 139.8 mmol/L (137-145)
[2018-03-10 12:18] VITALS: BP 127/65
[2018-03-10 12:51] LABS: APPEARANCE,URINE CLEAR; BILIRUBIN,URINE NEGATIVE (NEGATIVE); COLOR,URINE YELLOW; GLUCOSE, URINE 50 mg/dL (NEGATIVE); KETONES,URINE NEGATIVE (NEGATIVE); LEUKOCYTE ESTERASE,URINE NEGATIVE (NEGATIVE); NITRITE,URINE NEGATIVE (NEGATIVE); PROTEIN,URINE 30 mg/dL (NEGATIVE); URINE SPECIFIC GRAVITY 1.012; UROBILINOGEN,URINE NEGATIVE mg/dL (<2.0)
--- NOTE | 2018-03-10 13:58 | EKG REPORT ---
SEVERITY:- ABNORMAL ECG - SINUS RHYTHM BORDERLINE RIGHT AXIS DEVIATION REPOL ABNRM SUGGESTS ISCHEMIA, ANT-LAT LEADS : Confirmed by: Kaylene Harper MD 10-Mar-2018 13:58:05
== END 2018-03-10 16:27 | disposition home or self-care (01) ==
LOC: ER 11:09
DX: I12.9 Hypertensive chronic kidney disease with stage 1 through stage 4 chronic kidney disease, or unspecified chronic kidney disease (principal); E11.22 Type 2 diabetes mellitus with diabetic chronic kidney disease; E11.649 Type 2 diabetes mellitus with hypoglycemia without coma; Z79.4 Long term (current) use of insulin; N18.9 Chronic kidney disease, unspecified
CPT/HCPCS: 36415; 80048; 81001; 82962; 84484; 85025; 93005; 93010; 99284

== ENCOUNTER 2018-06-18 17:13 | Emergency (ER) | payer MEDICARE, OTHER ==
[2018-06-18] MEDS ORDERED: LIDOCAINE 1% INJ-PF (10 MG/ML) 30 ML SDV INJ ONE (18:51)
--- NOTE | 2018-06-18 18:53 | ER Document Report ---
ED Medical Screen (RME) - General Chief Complaint: Laceration Stated Complaint: LEFT HAND LACERATION Time Seen by Provider: 06/18/18 18:40 Notes: 72-year-old male who was slicing chicken just prior to arrival complains of a laceration to the lateral aspect of his left thumb. Denies weakness, loss of sensation. Is a diabetic but is not on any blood thinners. Physical examination Examination of left hand reveals a 2 cm long well approximated laceration to the lateral aspect of the left thumb with full range of motion and good sensation until the patient flexes his thumb at which point it is gaping and begins to bleed again, small amount of subcutaneous fat is visualized. No tendons are visualized. TRAVEL OUTSIDE OF THE [place] IN LAST 30 DAYS: No - Related Data Allergies/Adverse Reactions: No Known Allergies Allergy (Verified 12/20/17 20:42) Past Medical History - Social History Frequency of alcohol use: None Drug Abuse: None - Past Medical History Cardiac Medical History: Reports: Hx Coronary Artery Disease, Hx Hypercholeste rolemia, Hx Hypertension Denies: Hx Heart Attack Pulmonary Medical History: Reports: Hx COPD Denies: Hx Asthma, Hx Bronchitis, Hx Pneumonia Neurological Medical History: Denies: Hx Cerebrovascular Accident, Hx Seizures Endocrine Medical History: Reports: Hx Diabetes Mellitus Type 1, Hx Diabetes Mellitus Type 2 Renal/ Medical History: Denies: Hx Peritoneal Dialysis GI Medical History: Denies: Hx Hepatitis, Hx Hiatal Hernia, Hx Ulcer Musculoskeltal Medical History: Reports Hx Arthritis - knees Psychiatric Medical History: Reports: Hx Depression Infectious Medical History: Denies: Hx Hepatitis Past Surgical History: Reports: Hx Cardiac Surgery - TRIPLE BYPASS, STENTS, Hx Nose Surgery, Hx Open Heart Surgery - bypass, Hx Orthopedic Surgery - bilat TKA, Hx Tonsillectomy. Denies: Hx Pacemaker - Immunizations Hx Diphtheria, Pertussis, Tetanus Vaccination: Yes History of Influenza Vaccine for 01/2017 - 06/2017 Season: No Physical Exam - Vital signs Vitals: Temp Pulse Resp BP Pulse Ox 97.8 F 55 L 18 137/73 H 96 06/18/18 17:18 06/18/18 17:18 06/18/18 17:18 06/18/18 17:18 06/18/18 17:18 Course - Vital Signs Vital signs: Temp Pulse Resp BP Pulse Ox 97.8 F 55 L 18 137/73 H 96 06/18/18 17:18 06/18/18 17:18 06/18/18 17:18 06/18/18 17:18 06/18/18 17:18
--- NOTE | 2018-06-18 20:12 | ER Document Report ---
ED Hand/Wrist Injury - General Chief Complaint: Laceration Stated Complaint: LEFT HAND LACERATION Time Seen by Provider: 06/18/18 18:40 Primary Care Provider: FARAZ TIRADO MD [Primary Care Provider] - Follow up as needed Mode of Arrival: Ambulatory Information source: Patient Notes: 72-year-old male presented to ED for cough complaint of a laceration to the lateral aspect of his left thumb. Patient is alert oriented respirations regular and unlabored speaking in full sentences. He states he was trying to slice chicken when he missed the chicken and sliced his hand. Patient does have a 2 cm long laceration to the lateral aspect of the left thumb. He has full range of motion and states his last tetanus shot was about 6 months ago. TRAVEL OUTSIDE OF THE [place] IN LAST 30 DAYS: No - HPI Injury to: Thumb Onset: Just prior to arrival Where: Home, Indoors Timing: Still present Quality of pain: Sharp Severity: Moderate Pain Level: 3 Context: Laceration - Related Data Allergies/Adverse Reactions: No Known Allergies Allergy (Verified 12/20/17 20:42) Past Medical History - General Information source: Patient - Social History Smoking Status: Current Every Day Smoker Cigarette use (# per day): Yes - ppd Smoking Education Provided: Yes - 4 minutes Frequency of alcohol use: None Drug Abuse: None Family History: Reviewed & Not Pertinent Patient has suicidal ideation: No Patient has homicidal ideation: No - Past Medical History Cardiac Medical History: Reports: Hx Coronary Artery Disease, Hx Hypercholesterolemia, Hx Hypertension Pulmonary Medical History: Reports: Hx COPD EENT Medical History: Reports: None Neurological Medical History: Reports: None Endocrine Medical History: Reports: Hx Diabetes Mellitus Type 2 Renal/ Medical History: Reports: None Malignancy Medical History: Reports None GI Medical History: Reports: None Musculoskeletal Medical History: Reports Hx Arthritis - knees Skin Medical History: Reports None Psychiatric Medical History: Reports: Hx Depression Traumatic Medical History: Reports: None Infectious Medical History: Reports: None Past Surgical History: Reports: Hx Cardiac Surgery - TRIPLE BYPASS,, Hx Nose Surgery, Hx Open Heart Surgery - bypass, Hx Orthopedic Surgery - bilat TKA, Hx Tonsillectomy - Immunizations Immunizations up to date: Yes Hx Diphtheria, Pertussis, Tetanus Vaccination: Yes Review of Systems - Review of Systems Constitutional: No symptoms reported EENT: No symptoms reported Cardiovascular: No symptoms reported Respiratory: No symptoms reported Gastrointestinal: No symptoms reported Genitourinary: No symptoms reported Male Genitourinary: No symptoms reported Musculoskeletal: No symptoms reported Skin: Other - Laceration to the left lateral thumb Hematologic/Lymphatic: No symptoms reported Neurological/Psychological: No symptoms reported -: Yes All other systems reviewed and negative Physical Exam - Vital signs Vitals: Temp Pulse Resp BP Pulse Ox 97.8 F 55 L 18 137/73 H 96 06/18/18 17:18 06/18/18 17:18 06/18/18 17:18 06/18/18 17:18 06/18/18 17:18 Interpretation: Normal - General General appearance: Appears well, Alert - HEENT Head: Normocephalic, Atraumatic Eyes: Normal Pupils: PERRL - Respiratory Respiratory status: No respiratory distress Chest status: Nontender Breath sounds: Normal Chest palpation: Normal - Cardiovascular Rhythm: Regular Heart sounds: Normal auscultation Murmur: No - Abdominal Inspection: Normal Distension: No distension Bowel sounds: Normal Tenderness: Nontender Organomegaly: No organomegaly - Back Back: Normal, Nontender - Extremities General upper extremity: Normal color, Normal ROM, Normal temperature General lower extremity: Normal inspection, Nontender, Normal color, Normal ROM, Normal temperature, Normal weight bearing. No: Hellen's sign Hand: Tender, Laceration - Left lateral thumb laceration 2 cm, No evidence of human bite, No evidence of FB. No: Tendon deficit - Neurological Neuro grossly intact: Yes Cognition: Normal Orientation: AAOx4 Ace Coma Scale Eye Opening: Spontaneous [place] Coma Scale Verbal: Oriented [place] Coma Scale Motor: Obeys Commands [place] Coma Scale Total: 15 Speech: Normal Motor strength normal: LUE, RUE, LLE, RLE Sensory: Normal - Psychological Associated symptoms: Normal affect, Normal mood - Skin Skin Temperature: Warm Skin Moisture: Dry Skin Color: Normal Skin irregularity: Laceration - Left lateral thumb 2 cm full range of motion to the thumb Location of irregularity: Extremities Course - Vital Signs Vital signs: Temp Pulse Resp BP Pulse Ox 98.1 F 52 L 18 135/53 H 100 06/18/18 20:45 06/18/18 20:45 06/18/18 20:45 06/18/18 20:45 06/18/18 20:45 Procedures - Immobilization Left Finger Thumb Time completed: 20:14 Pre-Proc Neuro Vasc Exam: Normal Immobilizer type: Finger protection Performed by: PCT Post-Proc Neuro Vasc Exam: Normal Alignment checked and good: Yes - Laceration/Wound Repair Left Finger Thumb Time completed: 20:12 Wound length (cm): 2 Wound's Depth, Shape: Linear Laceration pre-procedure: Sterile PPE donned, Sterile drapes applied, Shur-Clens applied Anesthetic type: 1% Lidocaine Volume Anesthetic (mLs): 3 Wound explored: Contaminated Irrigated w/ Saline (mLs): 300 Wound Repaired With: Sutures Suture Size/Type: 5:0, Ethilon Number of Sutures: 4 Layer Closure?: No Post-procedure wound care: Sterile dressing applied, Splint applied Post-procedure NV exam normal: Yes Complications: No Discharge - Discharge Clinical Impression: Laceration of left thumb Qualifiers: Encounter type: initial encounter Damage to nail status: without damage Foreign body presence: without foreign body Qualified Code(s): S61.012A - Laceration without foreign body of left thumb without damage to nail, initial encounter Condition: Stable Disposition: HOME, SELF-CARE Instructions: Family Physicians / Practices Additional Instructions: Hand Laceration A laceration on the hand can present special problems. It may be difficult to keep the wound dry. Motion of the fingers can disturb the healing edges. Your work may involve exposure to damaging chemicals or water. Keep the wound clean and dry. If you can't keep the cut dry, undisturbed, and free of chemical exposure, please discuss this with the doctor. If any water or chemical gets onto the dressing, remove it, blot the wound dry, then apply a fresh bandage. Dressings should be changed every day. If you feel the stitches pulling as you move the hand, a splint or other form of protection is needed. If any signs of infection occur (swelling, redness, increasing tenderness, red streaks, tender lumps in the armpit, or fever), see the doctor immediately. SOAP CLEANSING: Gently wash the wound daily using a mild soap (like Ivory, Phisoderm, Neutrogena). Use warm water, rubbing gently until all debris, ooze, and crusting have been washed from the wound. Allow to dry briefly (about 10 minutes) after cleaning. Repeat this cleansing at least three times a day for the first two days and then once or twice a day. ANTIBIOTIC OINTMENT PROTECTION: Your wounds are such that dressing them is not practical or optional. Af ter cleansing, you should apply a thin coating of antibiotic ointment (Bacitracin, not Neosporin) to the wounds at least three times daily. This lessens infection risk, and may decrease the amount of scarring. Use a q-tip or dull butter knife, not your finger, to apply this ointment. Any debris or ooze which builds up in the ointment should be gently rubbed off with a sterile gauze pad. Harder crusting may need to be gently scrubbed off with a clean wash cloth with soap and warm water, perhaps applying a warm, wet wash cloth to the wound for ten minutes first. Development of redness, severe itching, or blistering may mean allergy to the ointment. See the doctor. FOLLOW-UP CARE: Please return or go to primary care provider in __3___ days for an infection check and dressing change. Your sutures should be removed in __8___ days. To facilitate a timely removal of your sutures, you may return to the Emergency Department at [facility]. You do not need to call for an appointment, but the best time to come in for suture removal is early in the morning. If you have been referred to another physician for follow-up care, call that physicians office for an appointment as you were instructed. If you experience a significant change in your laceration, or if you are concerned there may be an infection (swelling, redness, drainage, increasing tenderness, red streaks, tender lumps in the armpit or groin above the laceration, or fever), return to the Emergency Department immediately re-evaluation. Forms: Elevated Blood Pressure, Smoking Cessation Education Referrals: FARAZ TIRADO MD [Primary Care Provider] - Follow up as needed
[2018-06-18 20:58] VITALS: BP 135/53
== END 2018-06-18 20:45 | disposition home or self-care (01) ==
LOC: ER 17:13
PROC: 0HQGXZZ Repair Left Hand Skin, External Approach (ICD-10-PCS; principal; 2018-06-18)
DX: S61.412A Laceration without foreign body of left hand, initial encounter (principal); W45.8XXA Other foreign body or object entering through skin, initial encounter; Y93.G1 Activity, food preparation and clean up; F17.210 Nicotine dependence, cigarettes, uncomplicated; I25.10 Atherosclerotic heart disease of native coronary artery without angina pectoris; I10 Essential (primary) hypertension; J44.9 Chronic obstructive pulmonary disease, unspecified; E11.9 Type 2 diabetes mellitus without complications
CPT/HCPCS: 99282; 99406

== ENCOUNTER 2019-05-24 10:20 | Emergency (ER) | payer MEDICARE, OTHER ==
[2019-05-24] MEDS ORDERED: MORPHINE SULFATE 10 MG/ML INJ IV ONE (10:57)
--- NOTE | 2019-05-24 11:03 | ER Document Report ---
ED General - General Chief Complaint: Rib Pain Stated Complaint: LEFT RIB PAIN/FALL Time Seen by Provider: 05/24/19 10:43 Primary Care Provider: FARAZ TIRADO MD [Primary Care Provider] - Follow up as needed Notes: HPI: Patient is a 73-year-old male who presents today after a fall 3 days ago at home. Patient states he was walking to get a glass of water and woke up on the ground. He does not know how he got there. No incontinence or history of seizures. He thinks he may have passed out. Patient denies any and all palpitations, chest pain, lightheadedness or dizziness either before or after the fall. Since the fall he has had some left lower lateral rib pain. He refused transport to EMS at that time. He did follow-up with his primary care physician Dr. Huang and had an x-ray showing left-sided rib fractures. He was given pain medications. He states that the pain has continued and it also is currently present in his left upper abdomen. CANDIDA: See HPI All other review of systems reviewed and otherwise negative Reviewed vital signs and nursing note as charted by RN. PHYSICAL EXAM: CONSTITUTIONAL: Alert and oriented and responds appropriately to questions. Well-appearing; well-nourished HEAD: Normocephalic; atraumatic EYES: PERRL; Conjunctivae clear, sclerae non-icteric ENT: Normal nose; no rhinorrhea; moist mucous membranes; pharynx without lesions noted NECK: Supple without meningismus; non-tender; no cervical lymphadenopathy, no masses CARD: Regular rate and rhythm; no murmurs; symmetric distal pulses RESP: Normal chest excursion without splinting or tachypnea; breath sounds clear and equal bilaterally; tenderness to palpation of the left anterior lateral ribs with no obvious crepitus, swelling, or bruising ABD/GI: Normal bowel sounds; non-distended; soft, under palpation of the left upper quadrant of the abdomen without any rebound or guarding. No bruising or palpable masses BACK: The back appears normal and is non-tender to palpation along the midline spine EXT: Normal ROM in all joints; non-tender to palpation; no edema SKIN: No acute lesions noted NEURO: CN 2-12 intact; 5/5 bilateral upper and lower extremity strength with sensation intact to light touch PSYCH: The patient's mood and manner are appropriate. Grooming and personal hygiene are appropriate. TRAVEL OUTSIDE OF THE [place] IN LAST 30 DAYS: No - Related Data Allergies/Adverse Reactions: No Known Allergies Allergy (Verified 12/20/17 20:42) Home Medications: Percocet, Flexiril, Proair, Tramadol, Amlodipine, Celexa, Atorvastatin, Eliquis, Metoprolol Past Medical History - Social History Smoking Status: Current Every Day Smoker Family History: Reviewed & Not Pertinent Patient has suicidal ideation: No Patient has homicidal ideation: No - Past Medical History Cardiac Medical History: Reports: Hx Coronary Artery Disease, Hx Hypercholesterolemia, Hx Hypertension Denies: Hx Heart Attack Pulmonary Medical History: Reports: Hx COPD Denies: Hx Asthma, Hx Bronchitis, Hx Pneumonia Neurological Medical History: Denies: Hx Cerebrovascular Accident, Hx Seizures Endocrine Medical History: Reports: Hx Diabetes Mellitus Type 1, Hx Diabetes Patricia litus Type 2 Renal/ Medical History: Denies: Hx Peritoneal Dialysis GI Medical History: Denies: Hx Hepatitis, Hx Hiatal Hernia, Hx Ulcer Musculoskeletal Medical History: Reports Hx Arthritis - knees Psychiatric Medical History: Reports: Hx Depression Infectious Medical History: Denies: Hx Hepatitis Past Surgical History: Reports: Hx Cardiac Surgery - TRIPLE BYPASS,, Hx Nose Surgery, Hx Open Heart Surgery - bypass, Hx Orthopedic Surgery - bilat TKA, Hx Tonsillectomy. Denies: Hx Pacemaker - Immunizations Immunizations up to date: Yes Hx Diphtheria, Pertussis, Tetanus Vaccination: Yes Physical Exam - Vital signs Vitals: Temp Pulse Resp BP Pulse Ox 97.8 F 98 18 181/102 H 96 05/24/19 10:31 05/24/19 10:31 05/24/19 10:31 05/24/19 10:31 05/24/19 10:31 Course - Re-evaluation Re-evalutation: 05/24/19 11:02 Given the above history and physical examination as well as the patient's age I will obtain basic labs, cardiac troponin, EKG, and a CT scan of the head/chest/abdomen pelvis. I would like to ascertain the etiology of the possible syncopal-like event. I would also like to evaluate for the possibility of an intracranial hemorrhage given that the patient is on Eliquis as well as the possibility of multiple rib fractures, pneumohemothorax, or splenic injury. 05/24/19 11:27 EKG shows heart of 92, normal sinus rhythm, left bundle branch block. Old EKG from February 2018 shows some LVH with inverted and depressed T waves laterally. No left bundle branch block at that time. 05/24/19 11:56 Patient has some baseline creatinine elevation. His BUN and creatinine appears to be higher than on any previous visit since 2015. I have provided a liter of fluid. 05/24/19 12:16 Troponin has returned is elevated. Patient still denies any anterior chest pain. Patient does have what appears to be a new onset left bundle branch block. Patient had his CAT scans transition from with contrast without given the elevated creatinine. 05/24/19 13:16 CT imaging as recorded. No change in exam. No obvious pneumonia or pneumothorax. Given the elevated troponin with a left bundle branch block, already on Eliquis, I will attempt to consult/transfer the patient to [facility]. Blood glucose as recorded. Patient is an insulin-dependent diabetic. I have provided insulin in order every 1 hour Accu-Cheks. 05/24/19 13:37 Cardiology states that the patient took his Eliquis today, and that the patient should not receive heparin. Patient does confirm. Transfer has been accepted. - Vital Signs Vital signs: Temp Pulse Resp BP Pulse Ox 97.8 F 98 21 H 178/100 H 97 05/24/19 10:31 05/24/19 10:31 05/24/19 12:31 05/24/19 12:31 05/24/19 12:31 - Laboratory Result Diagrams: 05/24/19 11:08 05/24/19 11:08 Laboratory results interpreted by me: 05/24/19 11:08 Sodium 134.3 L Chloride 97 L BUN 48 H Creatinine 2.29 H Est GFR ( Amer) 34 L Est GFR (MDRD) Non-Af 28 L Glucose 390 H Critical Care Note - Critical Care Note Total time excluding time spent on procedures (mins): 35 Discharge - Discharge Clinical Impression: Syncope and collapse, New onset left bundle branch block (LBBB), Hyperglycemia Left rib fracture Qualifiers: Encounter type: initial encounter Rib fracture type: multiple ribs Fracture typ e: closed Qualified Code(s): S22.42XA - Multiple fractures of ribs, left side, initial encounter for closed fracture Acute renal failure Qualifiers: Acute renal failure type: unspecified Qualified Code(s): N17.9 - Acute kidney failure, unspecified Condition: Fair Disposition: [facility] Referrals: FARAZ TIRADO MD [Primary Care Provider] - Follow up as needed
[2019-05-24 11:26] LABS: ABSOLUTE BASOPHILS # (AUTO) 0.1 10^3/uL (0.0-0.2); ABSOLUTE EOSINOPHILS # (AUTO) 0.1 10^3/uL (0.0-0.6); ABSOLUTE LYMPHOCYTES (AUTO) 1.5 10^3/uL (0.5-4.7); ABSOLUTE MONOCYTES (AUTO) 0.7 10^3/uL (0.1-1.4); ABSOLUTE NEUT (AUTO) 7.5 10^3/uL (1.7-8.2); EOSINOPHILS % (AUTO) 1.4 % (0-6); HEMATOCRIT 48.9 % (37.9-51.0); HEMOGLOBIN 16.8 g/dL (13.5-17.0); LYMPHOCYTES % (AUTO) 15.4 % (13-45); MEAN CORPUSCULAR HEMOGLOBIN 32.5 pg (27.0-33.4); MEAN CORPUSCULAR HGB CONC 34.4 g/dL (32.0-36.0); MEAN CORPUSCULAR VOLUME 95 fl (80-97); MONOCYTES % (AUTO) 7.3 % (3-13); PLATELET COUNT 293 10^3/uL (150-450); RED BLOOD COUNT 5.18 10^6/uL (4.35-5.55); RED CELL DISTRIBUTION WIDTH 13.6 % (11.5-14.0); SEGMENTED NEUTROPHILS % (AUTO) 74.9 % (42-78); TOTAL CELLS COUNTED % (AUTO) 100 %
[2019-05-24 11:31] LABS: INTERNATIONAL RATION (INR) 1.03; PROTHROMBIN TIME 13.5 SEC (11.4-15.4)
[2019-05-24 11:40] LABS: ALKALINE PHOSPHATASE 122 U/L (38-126); ANION GAP 15 (5-19); ASPARTATE AMINO TRANSFERASE 25 U/L (17-59); BILIRUBIN,DIRECT 0.4 mg/dL (0.0-0.4); BILIRUBIN,TOTAL 1.2 mg/dL (0.2-1.3); BLOOD UREA NITROGEN 48 mg/dL (7-20); CALCIUM 9.9 mg/dL (8.4-10.2); CARBON DIOXIDE 22 mmol/L (22-30); CHLORIDE 97 mmol/L (98-107); GLUCOSE 390 mg/dL (75-110); POTASSIUM 4.9 mmol/L (3.6-5.0); TOTAL PROTEIN 7.4 g/dL (6.3-8.2)
[2019-05-24] MEDS ORDERED: NORMAL SALINE 1000 ML 1,000 ML IV ONE (11:55)
[2019-05-24] MEDS ORDERED: ASPIRIN 325 MG TABLET PO ONE ×2 (12:16→13:16)
--- NOTE | 2019-05-24 12:35 | RADIOLOGY REPORT (SQ) ---
EXAM DESCRIPTION: CT HEAD WITHOUT COMPLETED DATE/TIME: 05/24/2019 12:21 pm REASON FOR STUDY: 15; fall; head injury; eliquis COMPARISON: None. TECHNIQUE: Axial images acquired through the brain without intravenous contrast. Images reviewed wi th bone, brain and subdural windows. Images stored on PACS. All CT scanners at this facility use dose modulation, iterative reconstruction, and/or weight based d osing when appropriate to reduce radiation dose to as low as reasonably achievable (ALARA). [facility]: Dose Right [facility]: CareDose [facility]: Dose Right [facility]: Teradose 4D [facility]: mmCHANNEL RADIATION DOSE: CT Rad equipment meets quality standard of care and radiation dose reduction techniq ues were employed. CTDIvol: 53.2 mGy. DLP: 964 mGy-cm.mGy. LIMITATIONS: None. FINDINGS: VENTRICLES: Prominent. CEREBRUM: No mass effect. No hemorrhage. No midline shift. Areas of low density in the white matte r most likely due to chronic micro-vascular ischemic change. No evidence for acute territorial infar ction. CEREBELLUM: No hemorrhage. No alteration of density. No evidence for acute infarction. EXTRAAXIAL SPACES: Age-related involutional change. No fluid collections. ORBITS AND GLOBE: Symmetrical contour of the globes. CALVARIUM: No depressed fracture. PARANASAL SINUSES: No air-fluid level. SOFT TISSUES: No hematoma. IMPRESSION: No acute intracranial hemorrhage or depressed calvarial fracture. Chronic changes of at rophy and microvascular ischemia. EVIDENCE OF ACUTE STROKE: NO. TECHNICAL DOCUMENTATION: JOB ID: [id number] Quality ID # 436: Final reports with documentation of one or more dose reduction techniques (e.g., Au tomated exposure control, adjustment of the mA and/or kV according to patient size, use of iterative reconstruction technique) 2010 [employer]- All Rights Reserved Reading location - IP/workstation name: [email or web address]
--- NOTE | 2019-05-24 12:47 | RADIOLOGY REPORT (SQ) ---
EXAM DESCRIPTION: CT CHEST WITHOUT COMPLETED DATE/TIME: 05/24/2019 12:21 pm REASON FOR STUDY: 15; fall; head injury; eliquis . Trauma. COMPARISON: Chest x-ray 01/18/2018, CT abdomen and pelvis 05/24/2019 TECHNIQUE: CT scan performed of the chest without intravenous contrast. Images reviewed with lung, soft tissue and bone windows. Reconstructed coronal and sagittal MPR images reviewed. All images st ored on PACS. All CT scanners at this facility use dose modulation, iterative reconstruction, and/or weight based d osing when appropriate to reduce radiation dose to as low as reasonably achievable (ALARA). [facility]: Dose Right [facility]: CareDose [facility]: Dose Right [facility]: Teradose 4D [facility]: [employer] RADIATION DOSE: CT Rad equipment meets quality standard of care and radiation dose reduction techniq ues were employed. CTDIvol: 6.7 mGy. DLP: 484 mGy-cm. mGy. LIMITATIONS: No technical limitations. FINDINGS: LUNGS AND PLEURA: No consolidation, pleural effusion or pneumothorax. Mild atelectasis at the bilateral lower lobes. Suture material is noted at the right middle lobe. HILAR AND MEDIASTINAL STRUCTURES: No identified masses or abnormal nodes. No mediastinal hematoma or pneumomediastinum. Calcified lymph nodes are noted at the right hilum. HEART AND VASCULAR STRUCTURES: Status post open heart surgery. No pericardial effusion. No thoracic aortic aneurysm. Atherosclerotic calcifications at the thoracic aorta. UPPER ABDOMEN: See separate report of the CT of the abdomen. THYROID AND OTHER SOFT TISSUES: The visualized thyroid gland is unremarkable. BONES: No displaced fracture at the sternum. Acute, nondisplaced, fractures are noted at the lateral left 7th and 8th ribs with mild edema within the adjacent left lateral chest wall. Multilevel degen erative changes at the spine. HARDWARE: None in the chest. IMPRESSION: Acute, nondisplaced, fractures at the lateral left 7th and 8th ribs with mild edema with in the adjacent left lateral chest wall. Mild bibasilar atelectasis. TECHNICAL DOCUMENTATION: JOB ID: [id number] [place]-64 Quality ID # 436: Final reports with documentation of one or more dose reduction techniques (e.g., Au tomated exposure control, adjustment of the mA and/or kV according to patient size, use of iterative reconstruction technique) 2010 [employer]- All Rights Reserved Reading location - IP/workstation name: [email or web address]
--- NOTE | 2019-05-24 13:00 | RADIOLOGY REPORT (SQ) ---
EXAM DESCRIPTION: CT ABD/PELVIS NO ORAL OR IV COMPLETED DATE/TIME: 05/24/2019 12:21 pm REASON FOR STUDY: 15; trauma; left up abdominal pain with rib fracture COMPARISON: CT chest 05/24/2019. CT abdomen and pelvis 12/20/2017, 05/19/2017. TECHNIQUE: CT scan of the abdomen and pelvis performed without intravenous or oral contrast. Images reviewed with lung, soft tissue, and bone windows. Reconstructed coronal and sagittal MPR images revi ewed. All images stored on PACS. All CT scanners at this facility use dose modulation, iterative reconstruction, and/or weight based d osing when appropriate to reduce radiation dose to as low as reasonably achievable (ALARA). [facility]: Dose Right [facility]: CareDose [facility]: Dose Right [facility]: Teradose 4D [facility]: Smart [employer] RADIATION DOSE: mGy. LIMITATIONS: None. FINDINGS: LOWER CHEST: See separate report of the CT of the chest. NON-CONTRASTED LIVER, SPLEEN, ADRENALS: Evaluation limited by lack of IV contrast. No perihepatic or perisplenic fluid collections. PANCREAS: No peripancreatic inflammatory changes. GALLBLADDER: Present. RIGHT KIDNEY AND URETER: Assessment limited by lack of IV contrast. No significant calcifications. No hydronephrosis or hydroureter. LEFT KIDNEY AND URETER: Assessment limited by lack of IV contrast. Cortical atrophy of the left kidn ey. Hypodense lesions at the left kidney, may represent cysts, limited evaluation for masses in the absence of intravenous contrast. No significant calcifications. No hydronephrosis or hydroureter. AORTA AND RETROPERITONEUM: Atherosclerotic calcifications at the abdominal aorta and its branches. R edemonstration of 3.3 cm infrarenal abdominal aortic aneurysm. A vascular stent is noted at the left common iliac artery. No retroperitoneal hemorrhage or masses. 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 BOWEL AND PERITONEAL CAVITY: No dilated bowel loops or inflammatory changes. No free fluid or free ai r. Suture material is noted at the rectosigmoid colon. APPENDIX: Not visualized. PELVIS, BLADDER, AND ABDOMINAL WALL:The urinary bladder is distended. No pelvic mass. No free fluid BONES: Multilevel degenerative changes at the spine. No acute fracture at the pelvis or hips. IMPRESSION: 1. No acute findings in the abdomen or pelvis on unenhanced CT. 2. Cortical atrophy of the left kidney. Hypodense left renal lesions, incompletely evaluated on this exam. Nonemergent renal ultrasound can be obtained for further characterisation. 3. Atherosclerotic disease. 3.3 cm infrarenal abdominal aneurysm. Please see follow-up recommendati on. 4. 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 COMMENT: AAA Size: Follow-up Recommendation 3.0-3.4 cm Every 3 years *Based upon the Society for Vascular Surgery Guidelines: J Vasc Surg. 2009 Oct;50(4 Suppl):S2-49 *For aortas of maximum diameter of 2.6-2.9 cm meeting the criteria for AAA (?1.5 x proximal normal se gment) Quality ID # 436: Final reports with documentation of one or more dose reduction techniques (e.g., Au tomated exposure control, adjustment of the mA and/or kV according to patient size, use of iterative reconstruction technique) TECHNICAL DOCUMENTATION: JOB ID: [id number] [place]-64 2010 [employer]- All Rights Reserved Reading location - IP/workstation name: [email or web address]
[2019-05-24] MEDS ORDERED: INSULIN REG, HUMAN 100 UNIT/ML 3 ML VIAL (PYX) IV ONE (13:26)
[2019-05-24] MEDS ORDERED: APIXABAN 5 MG TABLET PO ONE (13:54)
[2019-05-24] MEDS ORDERED: LABETALOL HCL INJ 20 MG/4 ML DISP.SYRIN IV ONE (13:54)
[2019-05-24 16:18] VITALS: BP 153/104
--- NOTE | 2019-05-24 21:21 | EKG REPORT ---
SEVERITY:- ABNORMAL ECG - SINUS RHYTHM LBBB : Confirmed by: Kaylene Harper MD 24-May-2019 21:20:58
--- NOTE | 2019-05-24 21:21 | EKG REPORT ---
SEVERITY:- ABNORMAL ECG - SINUS RHYTHM LEFT BUNDLE BRANCH BLOCK : Confirmed by: Kaylene Harper MD 24-May-2019 21:20:33
== END 2019-05-24 16:40 | disposition short-term general hospital (02) ==
LOC: ER 10:20
DX: R55 Syncope and collapse (principal); S22.42XA Multiple fractures of ribs, left side, initial encounter for closed fracture; N17.9 Acute kidney failure, unspecified; R07.81 Pleurodynia; R10.12 Left upper quadrant pain; W19.XXXA Unspecified fall, initial encounter; F17.200 Nicotine dependence, unspecified, uncomplicated; I25.10 Atherosclerotic heart disease of native coronary artery without angina pectoris; I10 Essential (primary) hypertension; J44.9 Chronic obstructive pulmonary disease, unspecified; E11.9 Type 2 diabetes mellitus without complications
CPT/HCPCS: 93005; 36415; 82962; 85025; 85610; 80053; 84484; 70450; 71250; 74176; 93010; A9270 ×3; J3490; J2270; J7030; 96361; 96374; 96375; 99291; J1815

== ENCOUNTER → 2019-10-21 | Outpatient (CLI) | payer MEDICARE, OTHER ==
--- NOTE | 2019-10-22 14:19 | RADIOLOGY REPORT (SQ) ---
EXAM DESCRIPTION: ARTERIAL LOWER EXTREM BILAT IMAGES COMPLETED DATE/TIME: 10/21/2019 3:53 pm REASON FOR STUDY: PVD I73.9 PERIPHERAL VASCULAR DISEASE, UNSPECIFIED COMPARISON: None. TECHNIQUE: Dynamic and static mcqueen scale and color images acquired of the lower extremity arteries. Additional selected spectral images recorded. ABIs recorded. LIMITATIONS: None. FINDINGS: RIGHT LEG: ABIS: Normal, over 1.0. INFLOW ARTERIES: Normal, no obstruction evident. FEMORAL ARTERIES:Multiphasic waveforms. Normal, no velocity elevation to suggest focal stenosis. Norm al color Doppler evaluation. No aneurysm. POPLITEAL ARTERY:Multiphasic waveforms. Normal, no velocity elevation to suggest focal stenosis. Norm al color Doppler evaluation. No aneurysm. PATENT TIBIOPERONEAL TRUNK AND 3 VESSEL RUNOFF: Yes, normal vessels. TBI: Not performed. OTHER: Diminished digital PPG waveforms. LEFT LEG: ABIS: Normal, over 1.0. INFLOW ARTERIES: Normal, no obstruction evident. FEMORAL ARTERIES:Multiphasic waveforms. Normal, no velocity elevation to suggest focal stenosis. Norm al color Doppler evaluation. No aneurysm. POPLITEAL ARTERY:Multiphasic waveforms. Normal, no velocity elevation to suggest focal stenosis. Norm al color Doppler evaluation. No aneurysm. PATENT TIBIOPERONEAL TRUNK AND 3 VESSEL RUNOFF: Yes, normal vessels. TBI: Not performed. OTHER: Diminished digital PPG waveforms of the 3rd through 5th digits. IMPRESSION: 1. Normal bilateral lower extremity ABIs. Bilateral normal multiphasic waveforms throu ghout without focal stenosis. 2. Diminished digital PPG waveforms. COMMENT: [facility] NORMAL: Greater than 1.0 MINIMAL DISEASE: 0.9 to 1.0 CLAUDICATION: 0.5 to 0.9 SEVERE ARTERIAL DISEASE: Less than 0.5 [facility] NORMAL: Greater than 1.0 (1.2 If Heavy Calcifications) NORMAL TO MILD ISCHEMIA: 0.8 to 1.0 MODERATE ISCHEMIA: 0.4 to 0.8 SEVERE ISCHEMIA: Less than 0.4 TECHNICAL DOCUMENTATION: JOB ID: [id number] 2010 [employer]- All Rights Reserved Reading location - IP/workstation name: [email or web address]
== END ==
LOC: SP 10:25
PROVIDERS: ATTEND Podiatrist Foot Surgery
DX: I73.9 Peripheral vascular disease, unspecified (principal)
CPT/HCPCS: 93922; 93925